=== PATIENT | female | born 1935 | race Caucasian/White ===

== ENCOUNTER 2018-08-29 18:22 | Emergency (ER) | payer SELFPAY ==
[2018-08-29] MEDS ORDERED: Acetaminophen 500 MG TAB ONE (19:25)
--- NOTE | 2018-08-29 20:03 | RAD ---
EXAM: LUMBAR SPINE THREE VIEWS: 08/29/18 HISTORY: Low back pain increasing over several days. Moderate vertical height loss of L3 is noted but this has an old appearance. Heterogeneous bone demin eralization. Prominent atherosclerotic calcification. Generalized spondylosis. IMPRESSION: Bone demineralization. Spondylosis. Vertical height loss of L3 vertebral body which has more of an ol d appearance. Moderate fecal material including a dilated rectum. Evidence for obstipation. POS: [facility]
[2018-08-29] MEDS ORDERED: Cyclobenzaprine 10 MG TAB ONE (20:13)
--- NOTE | 2018-08-29 20:19 | ULT ---
RIGHT LOWER EXTREMITY VENOUS DUPLEX ULTRASOUND INCLUDING COLOR AND SPECTRAL DOPPLER IMAGIN08/29/18 HISTORY: Right ankle pain without known injury. Exam performed from groin to ankle including visualized greater saphenous, common femoral, superficia l femoral, profunda femoral, popliteal, trifurcation, and posterior tibial vein regions. Phasic flow noted at all levels with normal compressibility and normal augmentation. IMPRESSION: No evidence for deep venous thrombosis. POS: [facility]
[2018-08-29] MEDS ORDERED: HYDROcodone/Acetaminophen 5/325 mg Tablet ONE (22:01)
== END 2018-08-29 22:10 | disposition home or self-care (01) ==
LOC: ERS 18:22
DX: M54.5 Low back pain (principal); L03.115 Cellulitis of right lower limb; I48.91 Unspecified atrial fibrillation; E03.9 Hypothyroidism, unspecified; E78.5 Hyperlipidemia, unspecified; F41.9 Anxiety disorder, unspecified; F32.9 Major depressive disorder, single episode, unspecified; Z79.899 Other long term (current) drug therapy; Z79.01 Long term (current) use of anticoagulants
CPT/HCPCS: 72100

== ENCOUNTER 2018-08-30 22:26 | Emergency (ER) | payer MEDICARE, SELFPAY ==
[2018-08-30] MEDS ORDERED: Acetaminophen 500 MG TAB ONE (23:13)
[2018-08-30 23:42] LABS: #Basophils 0.1 thou/uL (0.0-0.2); #Eosinphils 0.2 thou/uL (0.0-0.7); #Neutrophils 6.9 thou/uL (1.40-6.50); %Basophils 0.7 % (0.0-1.0); %Eosinophils 1.8 % (0.0-10.0); %Lymphocytes 19.4 % (21.0-51.0); %Monocytes 9.6 % (0.0-10.0); %Neutrophils 68.6 % (42.0-75.0); Hemoglobin 13.8 g/dL (12.0-16.0); Mean Corpuscular HGB CONC 33.8 g/dL (32.0-36.0); Mean Corpuscular Volume 91.6 fL (78.0-98.0); Mean Platelet Volume 6.7 fL (7.4-10.4); Platelet Count 238 thou/uL (130-400); RBC Distribution Width 11.3 % (11.5-14.5); Red Blood Cell (RBC) Count 4.47 mill/uL (4.20-5.40)
[2018-08-30 23:57] LABS: Bilirubin Negative (Negative); Blood, Urine Negative (Negative); Clarity CLEAR (Clear); Glucose, Urine (Dipstick) Negative (Negative); Leukocyte Moderate (Negative); Nitrite Negative (Negative); Protein, Urine (Dipstick) Negative (Neg-Trace); Specific Gravity, Urine 1.014 (1.002-1.036)
[2018-08-30 23:59] LABS: Bacteria/HPF None Seen HPF (None Seen); Hyaline Casts/LPF 0-3 HYALINE CAST LPF (0-3 Hyaline); Pathc Cast-AUWi Flag 0.27 (0-2.49); RBC/HPF 0-3 HPF (0-3); Squamous Epithelial 0-3 HPF (0-3)
[2018-08-31 00:03] LABS: ALT (SGPT) 12 U/L (8-55); AST (SGOT) 17 U/L (5-34); Albumin 4.1 g/dL (3.4-4.8); Alkaline Phosphatase 67 U/L (40-150); Anion Gap 14 mmol/L (10-20); BUN (Urea Nitrogen) 16 mg/dL (9.8-20.1); Bilirubin, Total 1.4 mg/dL (0.2-1.2); Calc. Creatinine Clearance 0 mL/min (70-130); Calcium 9.5 mg/dL (7.8-10.44); Carbon Dioxide 26 mmol/L (23-31); Chloride 99 mmol/L (98-107); Estimated GFR-MDRD 56; Globulin 3.3 g/dL (2.4-3.5); Glucose 96 mg/dL (83-110); Potassium 3.6 mmol/L (3.5-5.1); Protein, Total 7.4 g/dL (6.0-8.3); Sodium 135 mmol/L (136-145)
== END 2018-08-31 01:26 | disposition home or self-care (01) ==
LOC: ERS 22:26
DX: M62.830 Muscle spasm of back (principal); F41.9 Anxiety disorder, unspecified; F32.9 Major depressive disorder, single episode, unspecified; I48.91 Unspecified atrial fibrillation; E03.9 Hypothyroidism, unspecified; E78.5 Hyperlipidemia, unspecified; Z79.899 Other long term (current) drug therapy
CPT/HCPCS: 36415; 80053; 81003; 81015; 85025; 99283

== ENCOUNTER 2018-09-10 15:01 | Observation (INO) | payer MEDICARE ==
[2018-09-10 16:42] LABS: #Lymphocytes 2.2 thou/uL (1.20-3.40); #Monocytes 1.1 thou/uL (0.11-0.59); #Neutrophils 11.1 thou/uL (1.40-6.50); %Basophils 0.2 % (0.0-1.0); %Eosinophils 0.2 % (0.0-10.0); %Lymphocytes 15.4 % (21.0-51.0); %Monocytes 7.5 % (0.0-10.0); %Neutrophils 76.8 % (42.0-75.0); Mean Corpuscular HGB CONC 32.9 g/dL (32.0-36.0); Mean Corpuscular Hemoglobin 30.7 pg (27.0-31.0); Mean Corpuscular Volume 93.4 fL (78.0-98.0); Mean Platelet Volume 5.9 fL (7.4-10.4); Platelet Count 348 thou/uL (130-400); RBC Distribution Width 11.8 % (11.5-14.5); Red Blood Cell (RBC) Count 4.23 mill/uL (4.20-5.40); White Blood Cell (WBC) Count 14.4 thou/uL (4.8-10.8)
[2018-09-10] MEDS ORDERED: Acetaminophen 325 MG TAB ONE (17:02)
[2018-09-10 17:04] LABS: ALT (SGPT) 17 U/L (8-55); AST (SGOT) 20 U/L (5-34); Albumin 3.7 g/dL (3.4-4.8); Alkaline Phosphatase 104 U/L (40-150); Anion Gap 11 mmol/L (10-20); BUN (Urea Nitrogen) 20 mg/dL (9.8-20.1); Bilirubin, Total 0.9 mg/dL (0.2-1.2); Calc. Creatinine Clearance 0 mL/min (70-130); Calcium 8.8 mg/dL (7.8-10.44); Carbon Dioxide 25 mmol/L (23-31); Chloride 101 mmol/L (98-107); Estimated GFR-MDRD 52; Globulin 2.8 g/dL (2.4-3.5); Glucose 93 mg/dL (83-110); Lipase 24 U/L (8-78); Potassium 3.8 mmol/L (3.5-5.1); Protein, Total 6.5 g/dL (6.0-8.3); Sodium 133 mmol/L (136-145)
[2018-09-10 17:16] LABS: Bilirubin Negative (Negative); Blood, Urine Large (Negative); Clarity CLOUDY (Clear); Glucose, Urine (Dipstick) Negative (Negative); Leukocyte Small (Negative); Nitrite Negative (Negative); Protein, Urine (Dipstick) Negative (Neg-Trace); Specific Gravity, Urine 1.009 (1.002-1.036)
[2018-09-10 17:19] LABS: Hyaline Casts/LPF 0-3 HYALINE CAST LPF (0-3 Hyaline); Squamous Epithelial 0-3 HPF (0-3); WBC/HPF 0-3 HPF (0-3)
[2018-09-10 17:21] LABS: Yeast-AUWi Flag 88.4 (0-25.0)
[2018-09-10 17:29] LABS: Bacteria/HPF Rare-Few HPF (None Seen); Crystals/HPF RARE AMORPH URATES HPF (Negative)
[2018-09-10] MEDS ORDERED: Lidocaine 2% PF 100 mg/5 ml Syringe ONE (17:49)
[2018-09-10] MEDS ORDERED: Lidocaine Viscous Sol 2% 15 ml UD Cup ONE (17:52)
--- NOTE | 2018-09-10 18:10 | CT ---
CT ABDOMEN AND PELVIS WITHOUT IV CONTRAST: INDICATIONS: Abdominal pain. TECHNIQUE: Multiple axial tomograms obtained through the abdomen and pelvis without IV enhancement. FINDINGS: The lung bases are clear. There is a small fixed diaphragmatic hernia. Atherosclerotic calcificatio n in the visualized aorta. Ectasia of the lower thoracic aorta as it passes through the diaphragm. Mild ectasia of the abdominal aorta without aneurysmal dilatation. The liver, spleen, and pancreas are unremarkable for an unenhanced study. Numerous clips in the lasha on of the gallbladder with evidence of a prior cholecystectomy. There are numerous small calcific de nsities seen in the proximal portal veins, which are of uncertain significance and etiology. There a re tiny granulomatous calcifications in the spleen. The adrenal glands appear normal. The kidneys are unremarkable. No hydronephrosis. Small bowel loops are of normal caliber. The appendix is not identified. There is stool throughout the colon. The rectum is dilated and filled with stool, suggesting a fecal impaction. The rectum measures up to 9 cm in diameter, and there is mild mural thickening, which suggests stercoral colitis, due to fecal impaction. The urinary bladder is unremarkable. IMPRESSION: 1. Stool-filled dilated rectum, suggesting fecal impaction. 2. Mild mucosal thickening, which also suggests changes of stercoral colitis. POS: [facility]
[2018-09-10] MEDS ORDERED: metroNIDAZOLE 500 MG/100 ML BAG ONE (18:18)
[2018-09-10 20:06] VITALS: BMI 19.9
[2018-09-10] MEDS ORDERED: hydrALAZINE 20 MG/ML VIAL SLOW IVP PRN (20:32)
[2018-09-10] MEDS ORDERED: Loperamide HCl 2 MG CAP PO PRN (20:43)
[2018-09-10] MEDS: Sodium Chloride 0.9% 1,000 ML IV SCH (21:02)
[2018-09-10] MEDS: Lisinopril 20 MG TAB PO SCH ×3 (21:05→22:46)
[2018-09-10] MEDS: Apixaban 2.5 MG TAB PO SCH ×3 (21:06→22:46)
[2018-09-10] MEDS: Amlodipine 5 MG TAB PO SCH ×3 (21:06→22:47)
[2018-09-10] MEDS ORDERED: Ondansetron PF 4 MG/2 ML Vial IVP PRN (21:16)
[2018-09-10] MEDS ORDERED: Ondansetron ODT 4 MG TAB PO PRN (21:16)
[2018-09-10] MEDS: Hyoscyamine Sulfate SL 0.125 mg Tablet SL SCH (23:49)
--- NOTE | 2018-09-11 01:07 | HP ---
PRIMARY CARE PHYSICIAN: Paul Pedraza MD CHIEF COMPLAINT: Diarrhea and left-sided abdominal pain. HISTORY OF PRESENT ILLNESS: Ms. Zurita is an 82-year-old female with past medical history of hypertension, hyperlipidemia, chronic kidney disease stage 2, chronic back pain, hypothyroidism, atrial fibrillation, who had presented to [facility] earlier today after she has been experiencing left-sided abdominal pain and several bouts of diarrhea that started yesterday morning. She states that she has about 10 to 12 bouts of diarrhea daily. She states that she has been taking Imodium at home, however, has seen no improvement. She states that she was started on antibiotics roughly 2 weeks ago for a foot infection, which she states had improved. However, since then, she states that the symptoms of left-sided abdominal pain and this diarrhea started. She had denied any fever, chills, any headache, blurred vision, dizziness, any chest pain, palpitations, shortness of breath, or any nausea, or vomiting. During her initial workup in the emergency department, her white count was slightly elevated at 14.4. She also underwent a CT abdomen and pelvis, which displayed mild mucosal thickening which would suggest changes of the Stercoral colitis and stool-filled dilated rectum suggesting of fecal impaction. However, the ED provider performed a digital rectal exam and found loose stool in the rectum and no further fecal impaction was suspected at that time. The patient states that her left-sided pain is worse with movement, but she states eating and drinking has not changed her pain. She was started on IV ciprofloxacin and IV Flagyl and she was started on IV normal saline for hydration. REVIEW OF SYSTEMS: All other systems reviewed and found to be negative unless mentioned in the HPI. PAST MEDICAL HISTORY: Hypertension, hyperlipidemia, hypothyroidism, chronic kidney disease stage 3, atrial fibrillation, currently controlled, and chronic back pain. PAST SURGICAL HISTORY: Hiatal hernia repair, appendectomy, cholecystectomy, hysterectomy, and oophorectomy. PSYCHIATRIC HISTORY: Includes anxiety and depression. SOCIAL HISTORY: The patient denies any alcohol, tobacco, or illicit drug use. KNOWN ALLERGIES: Codeine, fentanyl, iodine, penicillins, and sulfa. CURRENT HOME MEDICATIONS: 1. Apixaban 2.5 mg oral twice daily. 2. Docusate 100 mg p.o. daily. 3. Levothyroxine 75 mcg p.o. daily. 4. Amiodarone 100 mg oral daily. 5. Amlodipine 2.5 mg oral b.i.d. 6. Levsin 0.125 mg sublingual every 6 hours. 7. Lisinopril 20 mg oral b.i.d. 8. Metoprolol 50 mg oral daily. PHYSICAL EXAMINATION: VITAL SIGNS: BP 149/79, pulse 72, respirations 16, temperature 98.0 degrees Fahrenheit, and O2 saturations 96% on room air. GENERAL: The patient is awake, alert, and oriented x3. She is currently lying comfortably in bed and in no acute distress. HEENT: Atraumatic, normocephalic. Pupils are round and reactive to light. Extraocular muscles intact. Moist mucous membranes noted. CARDIOVASCULAR: Positive S1 and S2, regular rate and rhythm. No murmur auscultated. RESPIRATORY: Clear to auscultation bilaterally. No wheezes, rales, or rhonchi. ABDOMEN: Soft. Mild tenderness along the left lower quadrant of her abdomen. No rebound tenderness. No guarding. No rigidity. Bowel sounds present and hyperactive. MUSCULOSKELETAL: Strength 5+ in bilateral upper and lower extremities. Moves all extremities equal. Pedal and radial pulses 2+ bilaterally. No edema noted. NEUROLOGIC: Cranial nerves 2 through 12 grossly intact. No focal deficits noted. Speech intact and normal. Gait not assessed. SKIN: Warm, dry, and intact. No rashes. No ulceration noted. PSYCHIATRIC: Good mood and affect. LABORATORY DATA: WBC 14.4, RBC 4.23, hemoglobin 13.0, hematocrit 39.5, platelets 348. Sodium 133, potassium 3.8, anion gap 11, BUN 20, creatinine 1.02, estimated GFR 52, glucose 93, lactic acid 0.6, AST 20, ALT 17, alkaline phosphatase 104, lipase 24. Urinalysis shows small leukocyte esterase and large blood, otherwise unremarkable. DIAGNOSTIC IMAGING: CT abdomen and pelvis without contrast showed stool-filled dilated rectum suggestive of fecal impaction with mild mucosal thickening, which also suggest changes of Stercoral colitis. ASSESSMENT AND PLAN: 1. Colitis. The patient will be started on IV Cipro and Flagyl for now. She will also be started on gentle hydration with IV normal saline. She will be also managed with symptomatic management at this time. 2. Diarrhea, likely secondary to above, CT showed possible fecal impaction. However, the ED provider performed a digital rectal exam, which had failed to find any sort of fecal impaction. C diff was ruled out and other stool cultures pending at this time. 3. Leukocytosis. The patient will be continued on IV antibiotics for now and await further cultures. 4. Hypertension. Continue patient's home regimen. 5. Hypothyroidism. Continue patient's home dose of levothyroxine and recheck TSH in the morning. 6. History of atrial fibrillation, currently stable on Eliquis and amiodarone along with metoprolol, the patient will be monitored on telemetry and we will check daily EKG for any QT changes due to the use of Cipro. 7. Deep venous thrombosis and gastrointestinal prophylaxis. 8. Code status, full code. 9. Surrogate decision maker is patient's son, Sheng Zurita. DISPOSITION: Pending further workup and clinical findings. Job ID: [id number]
[2018-09-11] MEDS ORDERED: metroNIDAZOLE 500 MG in Premix Bag 1 BAG IVPB SCH (02:00)
[2018-09-11] MEDS: Acetaminophen 325 MG TAB PO PRN ×2 (03:43→20:38)
[2018-09-11 05:09] LABS: #Lymphocytes 1.6 thou/uL (1.20-3.40); #Monocytes 0.9 thou/uL (0.11-0.59); #Neutrophils 7.7 thou/uL (1.40-6.50); %Basophils 0.1 % (0.0-1.0); %Eosinophils 0.3 % (0.0-10.0); %Lymphocytes 15.8 % (21.0-51.0); %Monocytes 8.3 % (0.0-10.0); %Neutrophils 75.6 % (42.0-75.0); Hemoglobin 12.4 g/dL (12.0-16.0); Mean Corpuscular HGB CONC 33.2 g/dL (32.0-36.0); Mean Corpuscular Hemoglobin 30.8 pg (27.0-31.0); Mean Corpuscular Volume 92.8 fL (78.0-98.0); Mean Platelet Volume 6.1 fL (7.4-10.4); Platelet Count 336 thou/uL (130-400); RBC Distribution Width 11.7 % (11.5-14.5); Red Blood Cell (RBC) Count 4.02 mill/uL (4.20-5.40); White Blood Cell (WBC) Count 10.2 thou/uL (4.8-10.8)
[2018-09-11 05:17] LABS: Anion Gap 11 mmol/L (10-20); BUN (Urea Nitrogen) 15 mg/dL (9.8-20.1); Calc. Creatinine Clearance 50 mL/min (70-130); Calcium 8.5 mg/dL (7.8-10.44); Carbon Dioxide 22 mmol/L (23-31); Chloride 107 mmol/L (98-107); Estimated GFR-MDRD 73; Glucose 102 mg/dL (83-110); Potassium 4.1 mmol/L (3.5-5.1); Sodium 136 mmol/L (136-145)
[2018-09-11] MEDS: Sodium Chloride 0.9% 1,000 ML IV SCH (06:10)
[2018-09-11] MEDS: Levothyroxine Sodium 75 MCG TAB PO SCH (06:11)
[2018-09-11] MEDS: Hyoscyamine Sulfate SL 0.125 mg Tablet SL SCH ×4 (06:11→22:46)
[2018-09-11] MEDS: Apixaban 2.5 MG TAB PO SCH ×2 (08:46→20:54)
[2018-09-11] MEDS: Amlodipine 5 MG TAB PO SCH ×2 (08:47→20:36)
[2018-09-11] MEDS: Famotidine 20 MG TAB PO SCH ×2 (08:47→20:37)
[2018-09-11] MEDS: Amiodarone 200 MG TAB PO SCH (08:48)
[2018-09-11] MEDS: Lisinopril 20 MG TAB PO SCH ×2 (08:48→20:37)
[2018-09-11] MEDS: Docusate 100 MG CAP PO SCH (08:49)
[2018-09-11] MEDS ORDERED: Ciprofloxacin 500 MG TAB PO SCH (10:15)
[2018-09-11 11:16] LABS: Troponin I Less than 0.010 ng/mL (< 0.028)
[2018-09-11] MEDS: Lidocaine 5% Patch TD SCH (11:42)
--- NOTE | 2018-09-11 13:41 | PDOC.PN ---
- Subjective Encounter Start Date: 09/11/18 Encounter Start Time: 09:30 Subjective: Patient examined, c/o of chronic back pain with movement -: Did get up and walk up and down the halls today -: Reports diarrhea is much improved, denies abdominal pain - Objective Resuscitation Status - Order Detail: 09/10/18 21:16 Resuscitation Status Routine Co-Sign Provider: Resuscitation Status: FULL: Full Resuscitation Vital Signs & Weight: Vital Signs (12 hours) Temp Pulse Resp BP BP Pulse Ox 09/11/18 11:31 98.6 F 59 L 16 141/70 H 96 09/11/18 08:48 157/75 H 09/11/18 08:47 62 09/11/18 07:13 98.9 F 62 16 157/75 H 96 09/11/18 02:22 98.2 F 66 18 134/67 92 L Weight Weight 55.837 kg I&O: 09/10/18 09/11/18 09/12/18 06:59 06:59 06:59 Intake Total 1611 720 Output Total 300 Balance 1611 420 Result Diagrams: 09/11/18 04:25 09/11/18 04:25 Phys Exam - Physical Examination HEENT: PERRLA, moist MMs Neck: no nodes Respiratory: clear to auscultation bilateral Cardiovascular: RRR Gastrointestinal: soft, non-tender, positive bowel sounds Musculoskeletal: no edema, pulses present Neurological: non-focal, normal sensation Lymphatic: no nodes Psychiatric: normal affect, A&O x 3 Skin: cap refill <2 seconds Dx/Plan (1) Colitis Code(s): K52.9 - NONINFECTIVE GASTROENTERITIS AND COLITIS, UNSPECIFIED Status : Acute (2) Lumbar back pain Code(s): M54.5 - LOW BACK PAIN Status: Chronic (3) Atrial fibrillation Code(s): I48.91 - UNSPECIFIED ATRIAL FIBRILLATION Status: Chronic (4) Chronic kidney disease (CKD) Code(s): N18.9 - CHRONIC KIDNEY DISEASE, UNSPECIFIED Status: Chronic (5) Diarrhea Code(s): R19.7 - DIARRHEA, UNSPECIFIED Status: Resolved - Plan continue antibiotics Switched ABX to oral, ordered Lidocaine 5% patch for lumbar pain -: May DC ABX with cdiff negative and UA culture low for bacteria -: Will most likely DC home in AM if she continues to improve -: Diet as tolerated * .
[2018-09-11] MEDS: metroNIDAZOLE 500 MG TAB PO SCH ×2 (15:12→20:36)
[2018-09-11] MEDS: Ciprofloxacin 500 MG TAB PO SCH (20:36)
[2018-09-11] MEDS ORDERED: Lidocaine Patch Removal 1 EACH TOP SCH (23:30)
[2018-09-12] MEDS: Acetaminophen 325 MG TAB PO PRN ×3 (03:29→14:26)
[2018-09-12 05:24] LABS: #Basophils 0.1 thou/uL (0.0-0.2); #Eosinphils 0.1 thou/uL (0.0-0.7); #Lymphocytes 1.5 thou/uL (1.20-3.40); #Monocytes 0.8 thou/uL (0.11-0.59); #Neutrophils 7.7 thou/uL (1.40-6.50); %Basophils 0.6 % (0.0-1.0); %Eosinophils 0.6 % (0.0-10.0); %Monocytes 8.1 % (0.0-10.0); %Neutrophils 75.7 % (42.0-75.0); Hemoglobin 12.3 g/dL (12.0-16.0); Mean Corpuscular HGB CONC 32.3 g/dL (32.0-36.0); Mean Corpuscular Hemoglobin 30.5 pg (27.0-31.0); Mean Corpuscular Volume 94.2 fL (78.0-98.0); Mean Platelet Volume 5.8 fL (7.4-10.4); Platelet Count 306 thou/uL (130-400); RBC Distribution Width 11.8 % (11.5-14.5); Red Blood Cell (RBC) Count 4.02 mill/uL (4.20-5.40); White Blood Cell (WBC) Count 10.2 thou/uL (4.8-10.8)
[2018-09-12 05:46] LABS: Anion Gap 12 mmol/L (10-20); BUN (Urea Nitrogen) 13 mg/dL (9.8-20.1); Calc. Creatinine Clearance 55 mL/min (70-130); Calcium 8.6 mg/dL (7.8-10.44); Carbon Dioxide 21 mmol/L (23-31); Chloride 103 mmol/L (98-107); Estimated GFR-MDRD 80; Glucose 98 mg/dL (83-110); Sodium 132 mmol/L (136-145)
[2018-09-12] MEDS: Hyoscyamine Sulfate SL 0.125 mg Tablet SL SCH ×2 (06:09→12:49)
[2018-09-12] MEDS: Levothyroxine Sodium 75 MCG TAB PO SCH (06:09)
[2018-09-12] MEDS: Ciprofloxacin 500 MG TAB PO SCH (06:09)
[2018-09-12] MEDS: Docusate 100 MG CAP PO SCH (09:17)
[2018-09-12] MEDS: Amiodarone 200 MG TAB PO SCH (09:18)
[2018-09-12] MEDS: Apixaban 2.5 MG TAB PO SCH (09:18)
[2018-09-12] MEDS: Famotidine 20 MG TAB PO SCH (09:18)
[2018-09-12] MEDS: Amlodipine 5 MG TAB PO SCH (09:19)
[2018-09-12] MEDS: metroNIDAZOLE 500 MG TAB PO SCH ×2 (09:19→14:26)
[2018-09-12] MEDS: Lisinopril 20 MG TAB PO SCH (09:19)
[2018-09-12 12:27] VITALS: BP 153/73; TEMP 98.6
[2018-09-12] MEDS: Lidocaine 5% Patch TD SCH (12:30)
--- NOTE | 2018-09-12 23:34 | DIS ---
DATE OF ADMISSION: 09/10/2018 DATE OF DISCHARGE: 09/12/2018 PRIMARY CARE PHYSICIAN: Paul Pedraza MD CONSULTANTS: None. PROCEDURES: Abdomen and pelvis CT, findings; 1. Stool filled dilated rectum suggesting fecal impaction. 2. Mild mucosal thickening suggest changes of stercoral colitis. HOSPITAL COURSE: Ms. Zurita is an 82-year-old female with past medical history of hypertension, hyperlipidemia, chronic kidney disease stage 2, chronic back pain, hypothyroidism, atrial fib, who had presented to this [facility] ER after experiencing left-sided abdominal pain and 10 to 12 bouts of diarrhea. She reports that she had begun taking Imodium at home; however, she had not seen any improvement. She reported recent antibiotic use due to cellulitis. Reports that when the diarrhea did not stop with the Imodium, she came to the emergency room. Initial workup in the emergency room showed stercoral colitis and initial suggestion of fecal impaction, although the ED physician did try to do a disimpaction and did not find any stool in the rectal vault. She was initially started on IV Cipro and Flagyl and IV hydration. Stool was sent off for C diff, which was ruled out. The patient was changed over to p.o. Cipro and Flagyl and has tolerated. Reports that she no longer has any abdominal pain and diarrhea has stopped while being admitted. She denied chills, fever, any dizziness with these symptoms. Reports chronic back pain, which is currently her only symptom which is mildly improved after we applied lidocaine topical patch. The patient continued to improve, so she was sent home. We will continue the Flagyl and Cipro for 4 days and ask her to follow up with Dr. Pedraza within the next week. If the patient has not had a colonoscopy in the next 5 years, we recommend based on symptoms in the emergency room that she be sent for an evaluation. ALLERGIES: CODEINE, FENTANYL, IODINE, PENICILLIN, AND SULFA. MEDICATIONS: Home medications were restarted; 1. Amiodarone 100 mg p.o. daily. 2. Norvasc 2.5 mg p.o. b.i.d. 3. Eliquis 2.5 mg p.o. b.i.d. 4. Docusate 100 mg p.o. daily. 5. Levsin SL one tablet SL q.6 hours. 6. Levothyroxine p.o. daily. 7. Lisinopril 20 mg p.o. b.i.d. 8. Metoprolol 50 mg p.o. daily. 9. We added 4 days of 500 mg of Cipro t.i.d. x4 days, also Flagyl 500 mg p.o. t.i.d. x4 days, and Lidoderm 5% patch apply q.24 on for 12, off for 12, and then she can reapply. DISPOSITION: Home. DISPOSITION CONDITION: Stable. DISCHARGE INSTRUCTIONS: Follow up with Dr. Pedraza within the next week. Continue antibiotics for the next 4 days. Lidoderm 5% patch as needed p.r.n., instructed to she can apply q.24 hours, wear for 12, take off for 12. Follow up with her PCP if this helps to see if he will prescribe on an ongoing basis. Follow up with GI if she has not had a colonoscopy recently. Case discussed with Dr. Hogan who agrees with plan. Job ID: [id number]
--- NOTE | 2018-09-16 10:29 | EKG ---
Test Reason : BASELINE REFERENCE Blood Pressure : / mmHG Vent. Rate : 061 BPM Atrial Rate : 061 BPM P-R Int : 168 ms QRS Dur : 092 ms QT Int : 448 ms P-R-T Axes : 011 -03 070 degrees QTc Int : 450 ms Normal sinus rhythm Nonspecific ST and T wave abnormality Abnormal ECG Confirmed by LISANDRO LYON M.D. ([id number]), manuscript editor SUZY RODRIGUEZ ([id number]) on 09/16/2018 10:29:19 AM Referred By: ERMAdalberto Confirmed By:LISANDRO LYON M.D.
== END 2018-09-12 14:44 | disposition home or self-care (01) ==
LOC: ERS 15:01 → 2SW 19:39
PROVIDERS: ADMIT Family Medicine; ATTEND Family Medicine
DX: K52.89 Other specified noninfective gastroenteritis and colitis (principal); I12.9 Hypertensive chronic kidney disease with stage 1 through stage 4 chronic kidney disease, or unspecified chronic kidney disease; N18.3 Chronic kidney disease, stage 3 (moderate); E78.5 Hyperlipidemia, unspecified; G89.29 Other chronic pain; M54.9 Dorsalgia, unspecified; E03.9 Hypothyroidism, unspecified; I48.91 Unspecified atrial fibrillation; F41.9 Anxiety disorder, unspecified; F32.9 Major depressive disorder, single episode, unspecified; D72.829 Elevated white blood cell count, unspecified; Z79.01 Long term (current) use of anticoagulants; Z79.899 Other long term (current) drug therapy; Z88.0 Allergy status to penicillin; Z88.2 Allergy status to sulfonamides; Z88.5 Allergy status to narcotic agent; Z91.013 Allergy to seafood; Z91.018 Allergy to other foods; Z91.041 Radiographic dye allergy status
CPT/HCPCS: 74176; 80048 ×2; 80053; 83605; 83690; 84443; 84484; 85025 ×3; 87086; 87324; 87449; 93005 ×3; 96361 ×2; 96366; 96367; 97139 ×2; G0378 ×2; 36415; 81003; 81015; 93010; 96365; J0744; J2001

== ENCOUNTER 2018-09-16 18:12 | Inpatient (IN) | payer MEDICARE ==
[2018-09-16] MEDS ORDERED: Cyclobenzaprine 10 MG TAB ONE (19:07)
[2018-09-16 19:35] LABS: #Lymphocytes 1.7 thou/uL (1.20-3.40); #Monocytes 1.6 thou/uL (0.11-0.59); #Neutrophils 12.6 thou/uL (1.40-6.50); %Basophils 0.2 % (0.0-1.0); %Eosinophils 0.3 % (0.0-10.0); %Lymphocytes 10.4 % (21.0-51.0); %Monocytes 10.1 % (0.0-10.0); %Neutrophils 79.1 % (42.0-75.0); Hemoglobin 13.9 g/dL (12.0-16.0); Mean Corpuscular HGB CONC 33.5 g/dL (32.0-36.0); Mean Corpuscular Hemoglobin 30.9 pg (27.0-31.0); Mean Corpuscular Volume 92.3 fL (78.0-98.0); Mean Platelet Volume 5.7 fL (7.4-10.4); Platelet Count 324 thou/uL (130-400); RBC Distribution Width 12.1 % (11.5-14.5); Red Blood Cell (RBC) Count 4.49 mill/uL (4.20-5.40); White Blood Cell (WBC) Count 15.9 thou/uL (4.8-10.8)
[2018-09-16 19:56] LABS: Anion Gap 13 mmol/L (10-20); BUN (Urea Nitrogen) 14 mg/dL (9.8-20.1); Calc. Creatinine Clearance 0 mL/min (70-130); Calcium 9.1 mg/dL (7.8-10.44); Carbon Dioxide 20 mmol/L (23-31); Chloride 98 mmol/L (98-107); Estimated GFR-MDRD 73; Glucose 95 mg/dL (83-110); Potassium 3.7 mmol/L (3.5-5.1); Sodium 127 mmol/L (136-145)
[2018-09-16 20:19] LABS: Bilirubin Small (Negative); Blood, Urine Negative (Negative); Clarity CLEAR (Clear); Glucose, Urine (Dipstick) Negative (Negative); Leukocyte Trace (Negative); Nitrite Negative (Negative); Protein, Urine (Dipstick) Negative (Neg-Trace); Specific Gravity, Urine 1.024 (1.002-1.036)
[2018-09-16 20:21] LABS: Bacteria/HPF None Seen HPF (None Seen); Hyaline Casts/LPF 0-3 HYALINE CAST LPF (0-3 Hyaline); Pathc Cast-AUWi Flag 0.13 (0-2.49); RBC/HPF 0-3 HPF (0-3); Squamous Epithelial 0-3 HPF (0-3); WBC/HPF None Seen HPF (0-3)
[2018-09-16] MEDS ORDERED: SODIUM CHLORIDE 0.9% IVPB SCH (21:45)
[2018-09-16] MEDS ORDERED: METHOCARBAMOL IVPB SCH (21:45)
[2018-09-16] MEDS ORDERED: Methocarbamol 1 GM in Sodium Chloride 0.9% 100 ML IVPB SCH (22:00)
--- NOTE | 2018-09-16 22:55 | RAD ---
XR Chest 1 View Portable History: Back pain Comparison: None. Findings: Heart size is enlarged. Mild tortuosity of the aorta. Lungs without confluent airspace cons olidation, pneumothorax, or effusion. Impression: Chronic findings. No acute intrathoracic abnormality.
[2018-09-17] MEDS ORDERED: Ondansetron PF 4 MG/2 ML Vial IVP PRN (00:16)
[2018-09-17] MEDS ORDERED: Ondansetron ODT 4 MG TAB SL PRN (00:16)
[2018-09-17] MEDS: Sodium Chloride 0.9% 1,000 ML IV SCH ×2 (00:23→08:15)
[2018-09-17] MEDS: Acetaminophen 325 MG TAB PO PRN ×3 (00:24→18:22)
[2018-09-17 09:53] LABS: #Eosinphils 0.1 thou/uL (0.0-0.7); #Lymphocytes 1.7 thou/uL (1.20-3.40); #Monocytes 1.1 thou/uL (0.11-0.59); #Neutrophils 9.8 thou/uL (1.40-6.50); %Basophils 0.1 % (0.0-1.0); %Eosinophils 0.7 % (0.0-10.0); %Lymphocytes 13.5 % (21.0-51.0); %Monocytes 8.6 % (0.0-10.0); %Neutrophils 77.1 % (42.0-75.0); Hemoglobin 14.2 g/dL (12.0-16.0); Mean Corpuscular HGB CONC 33.5 g/dL (32.0-36.0); Mean Corpuscular Hemoglobin 31.2 pg (27.0-31.0); Mean Corpuscular Volume 93.2 fL (78.0-98.0); Mean Platelet Volume 5.6 fL (7.4-10.4); Platelet Count 347 thou/uL (130-400); RBC Distribution Width 12.3 % (11.5-14.5); Red Blood Cell (RBC) Count 4.56 mill/uL (4.20-5.40); White Blood Cell (WBC) Count 12.7 thou/uL (4.8-10.8)
[2018-09-17 10:12] LABS: Anion Gap 14 mmol/L (10-20); BUN (Urea Nitrogen) 8 mg/dL (9.8-20.1); Calc. Creatinine Clearance 52 mL/min (70-130); Calcium 9.1 mg/dL (7.8-10.44); Carbon Dioxide 20 mmol/L (23-31); Chloride 102 mmol/L (98-107); Estimated GFR-MDRD 77; Glucose 120 mg/dL (83-110); Potassium 3.4 mmol/L (3.5-5.1); Sodium 133 mmol/L (136-145)
[2018-09-17 13:22] VITALS: BMI 19.6
--- NOTE | 2018-09-17 13:35 | CT ---
EXAM: CT Abdomen Pelvis WO Con PROVIDED CLINICAL HISTORY: Constipation and back pain. Generalized abdominal pain. COMPARISON: 09/10/2018 FINDINGS: There is linear bibasilar scarring and atelectasis. Calcified granulomata are again seen at the left lung base and in the spleen. There is herniation of fat at the posterior right lung base with tiny right pleural effusion. Postsurgical changes related to cholecystectomy are noted. Multiple small calcifications are seen windy ng the course of the portal veins bilaterally which is similar to prior exam. Exact significance is uncertain. The pancreas, bilateral adrenal glands, kidneys, and urinary bladder demonstrate a grossly normal non enhanced CT appearance. There is evidence of prior hysterectomy. Dense vascular calcifications are again seen in the coronary arteries as well as involving the abdomi nal aorta, iliac arteries, and mesenteric vessels. A small hiatal hernia is again present. There is question of mild thickening of the mcdaniels the stomach , but this is likely related to incomplete distention. Loops of small bowel are normal in caliber. There has been interval increase in the amount of retained fecal material seen throughout the colon w ith a moderate amount of retained fecal material now present throughout the colon. Perirectal inflammatory stranding as well as mild colonic wall thickening has resolved. The distal ileum appears mildly prominent in size with mild wall thickening which is nonspecific. This was not appreciated on the prior exam. There is a stable compression fracture involving the L1 and L3 vertebral bodies with degree of height loss unchanged from recent study on 09/10/2018. Transitional vertebra is present at the lumbosacral junction. There is osteopenia. Degenerative changes are noted in the spine. IMPRESSION: 1. Moderate amount of retained fecal material seen throughout the colon which has increased when comp ared to the prior exam compatible with constipation. The rectum remains dilated, but this has improved as well as improvement in rectal wall thickening and perirectal inflammatory changes. There is mild dilatation and mild thickening involving the distal ileum. This could be related to peristalsis in this region. However, infectious or inflammatory process involving the distal ileum is not excluded. 2. Hiatal hernia. 3. Postcholecystectomy changes as well as hysterectomy. 4. Tiny right pleural effusion with bibasilar scarring and/or atelectasis. 5. Stable compression fractures L1 and L3 vertebral bodies of indeterminate age.
[2018-09-17] MEDS: Hyoscyamine Sulfate SL 0.125 mg Tablet SL SCH ×3 (14:36→23:47)
[2018-09-17] MEDS: GoLYTELY 4,000 ml Bottle PO SCH (17:35)
[2018-09-17] MEDS ORDERED: Sodium Chloride 0.9% 1,000 ML IV SCH (19:15)
[2018-09-17] MEDS: Lisinopril 20 MG TAB PO SCH (22:03)
[2018-09-17] MEDS: Famotidine 20 MG TAB PO SCH (22:03)
[2018-09-17] MEDS: Apixaban 2.5 MG TAB PO SCH (22:03)
[2018-09-17] MEDS: Amlodipine 5 MG TAB PO SCH (22:04)
[2018-09-17] MEDS: Polyethylene Glycol 3350 17 GM Packet PO SCH (22:05)
[2018-09-17] MEDS: Senokot S 8.6-50 MG TAB PO SCH (22:05)
--- NOTE | 2018-09-17 22:16 | HP ---
PRIMARY CARE PHYSICIAN: Listed as Paul Pedraza MD. The patient does report she sees a physician in [place]. CHIEF COMPLAINT: Back pain. HISTORY OF PRESENT ILLNESS: Ms. Zurtia is an 83-year-old female who reports to the emergency room for low back pain that she has had x1 month, reports a history of chronic back pain and was seen here earlier for similar back pain. She was admitted several days, 08/31/2017 and was sent home on 09/12. She had some colitis followed by which she was admitted for diarrhea and experiencing left-sided abdominal pain and had 10 to 12 bouts of diarrhea. She was started on Cipro and Flagyl and IV hydration. Stool was sent off for C diff and that was ruled out. She denied any more abdominal pain and diarrhea and reports that stopped while she was admitted. She did report chronic back pain at that time, but it was paraspinal and she does have a history of compression fractures. She was discharged on 09/12 and instructed to follow up and finish a course of Cipro and Flagyl, which we started in the hospital, and she reports that she has finished these. She denies any current abdominal pain. Denies any diarrhea. Does report that she has not had a bowel movement since she was discharged. The patient reports that pain is exacerbated by movement, but when she is lying in bed, she reports the pain subsides. She denies any nausea, diarrhea, or vomiting. She denies fall. She denies any recent injury or trauma and denies that the pain has changed. She was given some lidocaine patches on discharge, which she said did not really help. She was also given Robaxin in the emergency room, which she states does not really help either. She was subsequently admitted to the observation unit for further management. REVIEW OF SYSTEMS: All systems reviewed and found negative unless mentioned in the HPI. PAST MEDICAL HISTORY: Includes hypertension; hyperlipidemia; hypothyroidism; chronic kidney disease, stage 3; atrial fibrillation, currently controlled; and chronic back pain. PAST SURGICAL HISTORY: Hiatal hernia repair, appendectomy, cholecystectomy, hysterectomy, and oophorectomy. PSYCHIATRIC HISTORY: Includes anxiety and depression. SOCIAL HISTORY: She lives with her family. Denies any alcohol, tobacco, or illicit drug use. KNOWN ALLERGIES: Codeine, fentanyl, iodine, penicillins, and sulfa. CURRENT HOME MEDICATIONS: 1. Tylenol 1000 mg p.o. q.6 hours as needed. 2. Cordarone 100 mg p.o. daily. 3. Norvasc 2.5 mg p.o. b.i.d. 4. Eliquis 2.5 mg . 5. Vitamin D p.o. daily. 6. Docusate 100 mg p.o. daily. 7. Flaxseed 1000 mg p.o. daily. 8. Levsin SL 0.125 mg q.6 hours as needed. 9. Synthroid 75 mcg p.o. daily. 10. Lisinopril 20 mg p.o. b.i.d. 11. Lopressor 50 mg p.o. daily. PHYSICAL EXAMINATION: VITAL SIGNS: Blood pressure 136/74, pulse is 65, respirations 18, temperature is 98, pO2 sats are 96% on room air. CONSTITUTIONAL: The patient appears nontoxic, is alert and oriented to person, place, and time, and is in no distress. HEENT: Head is atraumatic and normocephalic. Eyes; eyelids are normal to inspection. Pupils are equally round and reactive to light. ENT; mouth exam is normal. Mucous membranes are moist. NECK: Normal range of motion. Trachea is midline. RESPIRATORY/CHEST: Breath sounds are clear. No signs of respiratory distress. CARDIOVASCULAR: Regular heart rate and rhythm. Heart sounds are normal. ABDOMEN: Bowel sounds are normal. Nontender. No distention. No guarding. No peritoneal signs. BACK: There is some mild tenderness, left sacral, left paraspinal. No midline tenderness. Normal thigh adduction. Normal knee extension. Normal ankle dorsiflexion. Normal knee reflexes. Normal plantar flexion. Normal groin sensation. EXTREMITIES: Upper extremity; normal range of motion. Normal sensation. Radial pulses are normal. Lower extremities; motor strength is normal. Sensation is intact. Normal range of motion. Pedal pulses are normal. NEUROLOGIC: Oriented to person, place, and time. Speech is normal. No focal motor or sensory deficits. She has no bowel or urinary incontinence. SKIN: Warm, dry, and normal in color. PSYCH: Has a normal affect. LABORATORY DATA: Initial white blood cell count was 15.9. Sodium was 127, potassium 3.7, chloride 98, carbon dioxide is 20, but BUN is 14, creatinine is 0.76, glucose is 95, calcium is 9.1. PLAN AND ASSESSMENT: 1. Low back pain, paraspinal in nature. Does have compression fractures noted on CT scan at L1, L3. Pain that she is experiencing are not over this particular area. 2. Constipation. We will order MiraLAX b.i.d. GoLYTELY to be drugged slowly over the next 24 hours. 3. The patient had an abdomen and pelvis CT, which showed some mild dilatation and mild thickening involving the distal ileum. Infectious or inflammatory process involving the distal ileum is not excluded. The patient has just finished a 7-day course of Cipro and Flagyl. We will try some relief for the constipation and this will have to be re-evaluated. 4. Hypertension. Home medications will be restarted. 5. Hypothyroidism. Home medication will be restarted. 6. History of atrial fibrillation, chronic anticoagulation use. The patient has a history of atrial fibrillation and we will restart the Eliquis, home medication. 7. Gastrointestinal prophylaxis has been started. 8. Case discussed with Dr. Lopez who agrees with plan. 9. Hospital course will be dependent on clinical findings. Job ID: [id number]
[2018-09-18] MEDS: Acetaminophen 325 MG TAB PO PRN ×4 (00:27→19:13)
--- NOTE | 2018-09-18 00:53 | CON ---
DATE OF CONSULTATION: CONSULTING PHYSICIAN: Matthew Phillips MD REASON FOR CONSULTATION: Hyponatremia. IMPRESSION: Hyponatremia. This is likely to be due to poor p.o. osmolar intake. However, I cannot completely rule out a component of syndrome of inappropriate antidiuretic hormone, especially in this patient with . PLAN: 1. Urine chemistry, sodium, and osmolality to be able to identify what type of hyponatremia. 2. The patient to step for increase p.o. intake in the way of animal meat. 3. Further management will be dependent on the clinical course and results of the urine chemistry. HISTORY OF PRESENT ILLNESS: This is an 83-year-old female patient who presented with back pain which has been going on for about a month. The patient does have history of chronic back pain. The patient recently treated for colitis for which she was discharged on Cipro, Flagyl. The patient has had some diarrhea. The patient also has poor appetite. According to her, whatever that is presented before she will lose appetite to eat. On presentation, the patient noted with a low sodium, thus the for need for renal consult. PAST MEDICAL HISTORY: Significant for hypertension, dyslipidemia, hypothyroidism, chronic kidney disease, stage 3, atrial fibrillation. MEDICATIONS: Reviewed and as documented on [employer]. FAMILY HISTORY: Not significantly related to present illness. SOCIAL HISTORY: Denies alcohol, tobacco, or illicit drug use. REVIEW OF SYSTEMS: As documented in the body of the history. PHYSICAL EXAMINATION: GENERAL: The patient was found not to be in any obvious distress with dry oral mucosa. NECK: Supple. EYES: No conjunctival injection or icterus. CARDIOVASCULAR: First and second heart sounds were heard. RESPIRATORY: Clear to auscultation. DIGESTIVE: Revealed a benign abdomen with positive bowel sounds. EXTREMITIES: No peripheral edema. SKIN: No new gross rash. LYMPHATICS: No peripheral lymphadenopathy. In summary, an 83-year-old female patient who presented with worsening chronic back pain, noted incidentally with hyponatremia, thus the need for renal consultation. Job ID: [id number]
[2018-09-18] MEDS: Hyoscyamine Sulfate SL 0.125 mg Tablet SL SCH ×4 (05:09→19:13)
[2018-09-18] MEDS: Levothyroxine 150 MCG TAB PO SCH (05:09)
[2018-09-18 05:20] LABS: #Eosinphils 0.1 thou/uL (0.0-0.7); #Neutrophils 7.8 thou/uL (1.40-6.50); %Basophils 0.2 % (0.0-1.0); %Lymphocytes 18.5 % (21.0-51.0); %Neutrophils 71.3 % (42.0-75.0); Hemoglobin 13.2 g/dL (12.0-16.0); Mean Corpuscular HGB CONC 33.3 g/dL (32.0-36.0); Mean Corpuscular Hemoglobin 31.3 pg (27.0-31.0); Mean Platelet Volume 5.6 fL (7.4-10.4); Platelet Count 322 thou/uL (130-400); RBC Distribution Width 12.3 % (11.5-14.5); Red Blood Cell (RBC) Count 4.22 mill/uL (4.20-5.40)
[2018-09-18 05:39] LABS: Anion Gap 12 mmol/L (10-20); BUN (Urea Nitrogen) 7 mg/dL (9.8-20.1); Calc. Creatinine Clearance 58 mL/min (70-130); Calcium 9.1 mg/dL (7.8-10.44); Carbon Dioxide 22 mmol/L (23-31); Chloride 103 mmol/L (98-107); Estimated GFR-MDRD 89; Glucose 94 mg/dL (83-110); Potassium 3.5 mmol/L (3.5-5.1); Sodium 133 mmol/L (136-145)
[2018-09-18] MEDS: Apixaban 2.5 MG TAB PO SCH ×2 (07:50→21:09)
[2018-09-18] MEDS: Senokot S 8.6-50 MG TAB PO SCH ×2 (07:50→21:13)
[2018-09-18] MEDS: Pot Chloride/Pot Bicarb/Cit Ac 25 mEq Effervescent Tablet PO SCH (07:50)
[2018-09-18] MEDS: Amlodipine 5 MG TAB PO SCH ×2 (07:51→21:10)
[2018-09-18] MEDS: Famotidine 20 MG TAB PO SCH ×2 (07:52→21:10)
[2018-09-18] MEDS: Amiodarone 200 MG TAB PO SCH (07:52)
[2018-09-18] MEDS: Lisinopril 20 MG TAB PO SCH ×2 (07:53→21:09)
[2018-09-18] MEDS: Polyethylene Glycol 3350 17 GM Packet PO SCH ×2 (07:53→21:13)
--- NOTE | 2018-09-18 14:31 | PDOC.PN ---
- Subjective Encounter Start Date: 09/18/18 Encounter Start Time: 14:27 Patient lying in bed, she reports feeling somewhat better today. She denies chest pain, shortness of breath, but reports some generalized weakness and some mild abdominal pain. 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 She continues on bowel regimen with some mild streaks of BM. - Objective Resuscitation Status - Order Detail: 09/17/18 10:33 Resuscitation Status Routine Co-Sign Provider: Resuscitation Status: FULL: Full Resuscitation Discussed with: patient Additional comments: Surrogate decision maker is Sheng Zurita, anca BRAR Reviewed: Yes Vital Signs & Weight: Vital Signs (12 hours) Temp Pulse Resp BP Pulse Ox 09/18/18 11:09 97.9 F 68 20 142/83 H 96 09/18/18 08:00 98.0 F 65 12 138/75 94 L 09/18/18 04:00 97.8 F 63 20 150/72 H 96 Weight Admit Weight 119 lb Weight 121 lb 8 oz I&O: 09/17/18 09/18/18 09/19/18 06:59 06:59 06:59 Intake Total 870 2580 Output Total 450 600 Balance 420 1980 Result Diagrams: 09/18/18 05:08 09/18/18 05:08 Radiology Reviewed by me: Yes Phys Exam - Physical Examination Constitutional: NAD HEENT: moist MMs, oral pharynx no lesions Neck: no nodes, supple Respiratory: no wheezing, no rales Cardiovascular: RRR, no significant murmur Gastrointestinal: soft, positive bowel sounds Mild diffuse tenderness to palpation Musculoskeletal: no edema, pulses present Neurological: non-focal, moves all 4 limbs Lymphatic: no nodes Psychiatric: A&O x 3 Skin: cap refill <2 seconds Dx/Plan (1) Constipation Code(s): K59.00 - CONSTIPATION, UNSPECIFIED Status: Acute (2) Hypothyroid Code(s): E03.9 - HYPOTHYROIDISM, UNSPECIFIED Status: Acute (3) Generalized weakness Code(s): R53.1 - WEAKNESS Status: Acute (4) Atrial fibrillation Code(s): I48.91 - UNSPECIFIED ATRIAL FIBRILLATION Status: Chronic (5) Chronic kidney disease (CKD) Code(s): N18.9 - CHRONIC KIDNEY DISEASE, UNSPECIFIED Status: Chronic (6) Lumbar back pain Code(s): M54.5 - LOW BACK PAIN Status: Chronic - Plan cont current plan of care, PT/OT * PT/OT * Consult rehab screen per PT recommendations * Continue bowel regimen * Continue home medications * If no relief or BM in next 24 hours will consider consult to GI
--- NOTE | 2018-09-18 18:22 | PRG ---
DATE OF SERVICE: 09/18/2018 SUBJECTIVE: The patient is seen and examined. Noted with the following vital signs. OBJECTIVE: VITAL SIGNS: Afebrile, temperature 98.1, pulse 60, respiratory rate of 18, O2 saturations 95%, and blood pressure 134/76. HEENT: Unremarkable. CARDIOVASCULAR SYSTEM: First and second heart sounds were heard. RESPIRATORY SYSTEM: Clear to auscultation. DIGESTIVE SYSTEM: Revealed a benign abdomen. Positive bowel sounds. EXTREMITIES: No peripheral edema. SKIN: No new gross rash. LYMPHATICS: No peripheral lymphadenopathy. LABORATORY INVESTIGATION: Showed a sodium that has plateaued around 133. 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 IMPRESSION: Chronic hyponatremia in the context of mild syndrome of inappropriate antidiuretic hormone. PLAN: 1. Discontinue IV fluid. 2. Increase protein intake in the way of animal meat. 3. Further management to be dependent on the clinical course. Job ID: [id number]
[2018-09-18] MEDS: GoLYTELY 4,000 ml Bottle PO SCH (23:16)
[2018-09-19] MEDS: Methocarbamol 500 MG TAB PO PRN ×3 (01:17→18:25)
[2018-09-19] MEDS: Hyoscyamine Sulfate SL 0.125 mg Tablet SL SCH ×5 (01:17→23:18)
[2018-09-19] MEDS: Acetaminophen 325 MG TAB PO PRN ×4 (02:31→23:24)
[2018-09-19] MEDS: Levothyroxine 150 MCG TAB PO SCH (05:59)
[2018-09-19] MEDS: Amiodarone 200 MG TAB PO SCH (08:03)
[2018-09-19] MEDS: Lisinopril 20 MG TAB PO SCH ×2 (08:03→20:44)
[2018-09-19] MEDS: Senokot S 8.6-50 MG TAB PO SCH ×2 (08:04→20:46)
[2018-09-19] MEDS: Polyethylene Glycol 3350 17 GM Packet PO SCH ×2 (08:04→20:45)
[2018-09-19] MEDS: Amlodipine 5 MG TAB PO SCH ×2 (08:04→20:44)
[2018-09-19] MEDS: Famotidine 20 MG TAB PO SCH ×2 (08:04→20:45)
[2018-09-19 08:44] LABS: #Eosinphils 0.1 thou/uL (0.0-0.7); #Lymphocytes 1.6 thou/uL (1.20-3.40); #Monocytes 0.8 thou/uL (0.11-0.59); #Neutrophils 7.7 thou/uL (1.40-6.50); %Basophils 0.2 % (0.0-1.0); %Eosinophils 0.9 % (0.0-10.0); %Lymphocytes 15.7 % (21.0-51.0); %Neutrophils 75.3 % (42.0-75.0); Hemoglobin 13.5 g/dL (12.0-16.0); Mean Corpuscular HGB CONC 33.6 g/dL (32.0-36.0); Mean Corpuscular Hemoglobin 30.9 pg (27.0-31.0); Mean Corpuscular Volume 91.8 fL (78.0-98.0); Mean Platelet Volume 5.6 fL (7.4-10.4); Platelet Count 310 thou/uL (130-400); RBC Distribution Width 12.2 % (11.5-14.5); Red Blood Cell (RBC) Count 4.38 mill/uL (4.20-5.40); White Blood Cell (WBC) Count 10.2 thou/uL (4.8-10.8)
[2018-09-19 09:02] LABS: Anion Gap 14 mmol/L (10-20); BUN (Urea Nitrogen) 7 mg/dL (9.8-20.1); Calc. Creatinine Clearance 54 mL/min (70-130); Calcium 8.9 mg/dL (7.8-10.44); Carbon Dioxide 23 mmol/L (23-31); Chloride 96 mmol/L (98-107); Estimated GFR-MDRD 81; Glucose 109 mg/dL (83-110); Potassium 3.1 mmol/L (3.5-5.1); Sodium 130 mmol/L (136-145)
[2018-09-19] MEDS: Apixaban 2.5 MG TAB PO SCH ×2 (09:05→20:44)
[2018-09-19] MEDS: Pot Chloride/Pot Bicarb/Cit Ac 25 mEq Effervescent Tablet PO SCH (09:05)
[2018-09-19] MEDS ORDERED: Potassium Chloride 20 MEQ TAB PO SCH (13:15)
--- NOTE | 2018-09-19 15:44 | PDOC.PN ---
- Subjective Encounter Start Date: 09/19/18 Encounter Start Time: 15:42 Patient lying in bed, she reports feeling better today. She reports 3 bowel movements last night. PT recommending rehab and patient willing to try swing bed in [place]. She denies chest pain, palpitations, shortness of breath. - Objective Resuscitation Status - Order Detail: 09/17/18 10:33 Resuscitation Status Routine Co-Sign Provider: Resuscitation Status: FULL: Full Resuscitation Discussed with: patient Additional comments: Surrogate decision maker is Sheng Zurita, son ZONIA Reviewed: Yes Vital Signs & Weight: Vital Signs (12 hours) Temp Pulse Resp BP BP Pulse Ox 09/19/18 15:05 97.6 F 61 14 117/65 94 L 09/19/18 11:19 97.7 F 60 14 141/74 H 94 L 09/19/18 08:04 66 09/19/18 08:03 150/74 H 09/19/18 07:43 98.3 F 66 24 H 139/81 95 09/19/18 04:00 97.8 F 63 20 135/71 95 Weight Admit Weight 119 lb Weight 122 lb I&O: 09/18/18 09/19/18 09/20/18 06:59 06:59 06:59 Intake Total 2580 800 Output Total 600 Balance 1980 800 Result Diagrams: 09/19/18 08:34 09/19/18 08:34 Radiology Reviewed by me: Yes Phys Exam - Physical Examination Constitutional: NAD HEENT: moist MMs, oral pharynx no lesions Neck: supple Respiratory: no wheezing, clear to auscultation bilateral Cardiovascular: RRR, no significant murmur Gastrointestinal: soft, non-tender, positive bowel sounds Musculoskeletal: no edema, pulses present Neurological: non-focal, moves all 4 limbs Lymphatic: no nodes Psychiatric: A&O x 3 Skin: cap refill <2 seconds Dx/Plan (1) Constipation Code(s): K59.00 - CONSTIPATION, UNSPECIFIED Status: Acute (2) Hypothyroid Code(s): E03.9 - HYPOTHYROIDISM, UNSPECIFIED Status: Acute (3) Generalized weakness Code(s): R53.1 - WEAKNESS Status: Acute (4) Atrial fibrillation Code(s): I48.91 - UNSPECIFIED ATRIAL FIBRILLATION Status: Chronic (5) Chronic kidney disease (CKD) Code(s): N18.9 - CHRONIC KIDNEY DISEASE, UNSPECIFIED Status: Chronic (6) Lumbar back pain Code(s): M54.5 - LOW BACK PAIN Status: Chronic - Plan cont current plan of care, PT/OT * Continue bowel regimen * PT/OT recommend rehab, but she is willing to try swing bed in [place] * Continue medical management * Sodium dropped to 130 today with low potassium, supplement of potassium given * Recheck BMP in am * Nephrology following and we appreciate recommendations * Transition to inpatient
[2018-09-19] MEDS: traMADol HCl 50 MG TAB PO PRN (20:46)
--- NOTE | 2018-09-19 21:55 | PRG ---
DATE OF SERVICE: 09/19/2018 SUBJECTIVE: The patient is seen and examined. No new complaint. Noted with the following vital signs. OBJECTIVE: VITAL SIGNS: Afebrile, temperature 97.6, pulse 61, respiratory rate of 14, blood pressure 141/74, O2 saturations are 94%. HEENT: Unremarkable. CARDIOVASCULAR SYSTEM: First and second heart sounds were heard. RESPIRATORY SYSTEM: Clear to auscultation. DIGESTIVE SYSTEM: Revealed a benign abdomen with positive bowel sounds. EXTREMITIES: No peripheral edema. SKIN: No new gross rash. LYMPHATICS: No peripheral lymphadenopathy. IMPRESSION: Hyponatremia in the context of syndrome of inappropriate antidiuretic hormone secretion with a slight drop in sodium. PLAN: 1. The patient to continue with increased protein intake in the way of animal meat and restrict free water intake. 2. Further management to be dependent on the clinical course. Job ID: [id number]
[2018-09-20] MEDS: Ketorolac Tromethamine 10 MG TAB PO SCH ×3 (00:35→08:22)
[2018-09-20] MEDS ORDERED: Lidocaine 5% Patch TD SCH ×2 (01:00→09:00)
[2018-09-20] MEDS: Levothyroxine 150 MCG TAB PO SCH (05:22)
[2018-09-20] MEDS: Hyoscyamine Sulfate SL 0.125 mg Tablet SL SCH (05:22)
[2018-09-20] MEDS: Apixaban 2.5 MG TAB PO SCH (08:21)
[2018-09-20] MEDS: Senokot S 8.6-50 MG TAB PO SCH (08:21)
[2018-09-20] MEDS: Polyethylene Glycol 3350 17 GM Packet PO SCH (08:21)
[2018-09-20] MEDS: Famotidine 20 MG TAB PO SCH (08:22)
[2018-09-20] MEDS: Lisinopril 20 MG TAB PO SCH (08:23)
[2018-09-20] MEDS: Amiodarone 200 MG TAB PO SCH (08:23)
[2018-09-20] MEDS: Amlodipine 5 MG TAB PO SCH (08:23)
[2018-09-20] MEDS: Pot Chloride/Pot Bicarb/Cit Ac 25 mEq Effervescent Tablet PO SCH (08:24)
[2018-09-20] MEDS: traMADol HCl 50 MG TAB PO PRN (10:49)
[2018-09-20 11:13] VITALS: BP 151/71; TEMP 98.4
--- NOTE | 2018-09-20 11:42 | PDOC.PN ---
- Subjective Encounter Start Date: 09/20/18 Encounter Start Time: 09:00 Subjective: no nausea or abd pain now -: feels better, no bm after 3 she had on - Objective Resuscitation Status - Order Detail: 09/17/18 10:33 Resuscitation Status Routine Co-Sign Provider: Resuscitation Status: FULL: Full Resuscitation Discussed with: patient Additional comments: Surrogate decision maker is Sheng Zurita, son ZONIA Reviewed: Yes Vital Signs & Weight: Vital Signs (12 hours) Temp Pulse Resp BP BP BP Pulse Ox 09/20/18 10:55 98.4 F 61 20 151/71 H 94 L 09/20/18 08:23 58 L 144/64 H 09/20/18 07:40 98.0 F 58 L 20 154/73 H 94 L 09/20/18 04:20 98.0 F 60 18 144/66 H 95 09/20/18 00:51 98.1 F 60 18 145/73 H 96 Weight Admit Weight 119 lb Weight 122 lb 4.8 oz I&O: 09/19/18 09/20/18 09/21/18 06:59 06:59 06:59 Intake Total 800 1740 Balance 800 1740 Result Diagrams: 09/19/18 08:34 09/19/18 08:34 Phys Exam - Physical Examination HEENT: PERRLA, moist MMs Neck: no JVD, supple Respiratory: no wheezing, no rales Cardiovascular: RRR, no significant murmur Gastrointestinal: soft, no distention, positive bowel sounds Musculoskeletal: no edema, pulses present Neurological: non-focal, moves all 4 limbs Psychiatric: A&O x 3 Dx/Plan (1) Constipation Code(s): K59.00 - CONSTIPATION, UNSPECIFIED Status: Resolved (2) Generalized weakness Code(s): R53.1 - WEAKNESS Status: Acute (3) Hypothyroid Code(s): E03.9 - HYPOTHYROIDISM, UNSPECIFIED Status: Chronic Qualifiers: Hypothyroidism type: unspecified Qualified Code(s): E03.9 - Hypothyroidism , unspecified (4) Atrial fibrillation Code(s): I48.91 - UNSPECIFIED ATRIAL FIBRILLATION Status: Chronic Qualifiers: Atrial fibrillation type: paroxysmal Qualified Code(s): I48.0 - Paroxysmal atrial fibrillation (5) Compression fracture Code(s): [id number] - Status: Chronic Comment: L1 and L3 with back pain - Plan hemostable -: is on vit D3, will need meds for osteoporosis via pcp -: dc pt to swing bed in [place] -: continue bowel regimen, lidocaine tts * .
[2018-09-20] MEDS ORDERED: Lidocaine Patch Removal 1 EACH TOP SCH ×2 (13:00→21:00)
--- NOTE | 2018-09-20 15:12 | DIS ---
DATE OF ADMISSION: 09/19/2018 DATE OF DISCHARGE: 09/20/2018 DISCHARGE DISPOSITION: [facility] swing bed. PRIMARY DISCHARGE DIAGNOSES: 1. Generalized weakness. 2. Constipation, resolved. 3. Paroxysmal atrial fibrillation. 4. Hypothyroidism. 5. Prior history of compression fracture of L1 and L3 with severe back pain, stable on lidocaine patches. PROCEDURES DONE DURING HOSPITALIZATION: CT of the abdomen and pelvis without contrast done on the day of admission showed moderate amount of retained fecal material seen throughout the colon which is increased when compared to prior exam on 09/10/2018. There are stable compression fractures involving L1 and L3 vertebral bodies of indeterminate age. Chest x-ray done showed chronic lung findings, otherwise no acute intrathoracic abnormality. Had a white count of 15 on the day of admission with discharge number of 10, H and H 13 and 40, platelet count 310. Discharge sodium of 130. Urine osmolality 378. DISCHARGE MEDICATIONS: 1. Amiodarone 200 mg p.o. daily. 2. Norvasc 2.5 mg p.o. twice daily. 3. Eliquis 2.5 mg twice daily. 4. Vitamin D3 of 1000 units p.o. daily. 5. Levsin sublingual q.6 hourly p.r.n. 6. Synthroid 75 mcg p.o. daily. 7. Lisinopril 20 mg twice daily. 8. Metoprolol extended release 50 mg p.o. daily. 9. Lidocaine transdermal patch daily. 10. MiraLax 17 g daily. 11. Senna 2 tablets p.o. twice daily. ALLERGIES: 1. CODEINE. 2. FENTANYL. 3. IODINE. 4. PENICILLIN. DISCHARGE PLAN: The patient to follow up with primary care physician in 1 week. BRIEF COURSE DURING HOSPITALIZATION: The patient initially came to emergency room for complaints of low back pain. This has been ongoing for almost a month. She has had a CT abdomen and pelvis done which showed constipation along with indeterminate age L1 and L3 compression fracture. She was recently hospitalized here for colitis. The patient was given GoLYTELY during her stay here and has had nearly 3 bowel movements. The patient states that she is cleaned out now. For her back pain, she was started on lidocaine patch which has helped her. In view of deconditioning , the patient is being discharged to [facility] bed for further recuperation prior to going home. She was placed on senna and MiraLAX for bowel regimen. She is otherwise hemodynamically stable and will be shortly discharged. Please see a [id number] documentation for the day of discharge on [place]. A total of 35 minutes was spent on discharge plan. Job ID: [id number] MTDD
== END 2018-09-20 11:05 | DRG 552 ==
LOC: ERS 18:12 → SURG B 22:05 → OBSVTOIN 09-19 15:48
PROVIDERS: ADMIT Hospitalist; ATTEND Hospitalist
DX: M54.5 Low back pain (principal); E22.2 Syndrome of inappropriate secretion of antidiuretic hormone; M48.56XA Collapsed vertebra, not elsewhere classified, lumbar region, initial encounter for fracture; G89.29 Other chronic pain; R53.1 Weakness; K59.00 Constipation, unspecified; E03.9 Hypothyroidism, unspecified; E78.5 Hyperlipidemia, unspecified; I12.9 Hypertensive chronic kidney disease with stage 1 through stage 4 chronic kidney disease, or unspecified chronic kidney disease; N18.3 Chronic kidney disease, stage 3 (moderate); F41.9 Anxiety disorder, unspecified; F32.9 Major depressive disorder, single episode, unspecified; M81.0 Age-related osteoporosis without current pathological fracture; I48.0 Paroxysmal atrial fibrillation; Z90.49 Acquired absence of other specified parts of digestive tract; Z90.710 Acquired absence of both cervix and uterus; Z90.721 Acquired absence of ovaries, unilateral; Z88.2 Allergy status to sulfonamides; Z88.5 Allergy status to narcotic agent; Z88.0 Allergy status to penicillin
CPT/HCPCS: 36415; 51701; 71045; 74176; 80048; 81003; 81015; 83935; 84300; 85025; 96361; 96374; A4353; J2800; J3490; J7050

== ENCOUNTER 2021-12-08 20:13 | Inpatient (IN) | payer MEDICARE, OTHER ==
[2021-12-08 21:27] LABS: #Eosinphils 0.2 thou/uL (0.0-0.7); #Lymphocytes 2.8 thou/uL (1.20-3.40); #Monocytes 0.7 thou/uL (0.11-0.59); #Neutrophils 3.6 thou/uL (1.40-6.50); %Basophils 0.6 % (0.0-1.0); %Eosinophils 3.2 % (0.0-10.0); %Lymphocytes 37.8 % (21.0-51.0); %Monocytes 9.9 % (0.0-10.0); %Neutrophils 48.4 % (42.0-75.0); Hemoglobin 13.1 g/dL (12.0-16.0); Mean Corpuscular HGB CONC 33.5 g/dL (32.0-36.0); Mean Corpuscular Hemoglobin 29.2 pg (27.0-31.0); Mean Corpuscular Volume 87.3 fL (78.0-98.0); Mean Platelet Volume 6.8 fL (7.4-10.4); Platelet Count 197 thou/uL (130-400); RBC Distribution Width 12.3 % (11.5-14.5); Red Blood Cell (RBC) Count 4.48 mill/uL (4.20-5.40); White Blood Cell (WBC) Count 7.5 thou/uL (4.8-10.8)
[2021-12-08 21:47] LABS: ALT (SGPT) 9 U/L (8-55); AST (SGOT) 18 U/L (5-34); Albumin 3.7 g/dL (3.4-4.8); Alkaline Phosphatase 69 U/L (40-110); Anion Gap 14 mmol/L (10-20); BUN (Urea Nitrogen) 14 mg/dL (9.8-20.1); Bilirubin, Total 1.1 mg/dL (0.2-1.2); Calc. Creatinine Clearance 0 mL/min (70-130); Calcium 9.3 mg/dL (7.8-10.44); Carbon Dioxide 21 mmol/L (23-31); Chloride 103 mmol/L (98-107); Estimated GFR 76; Glucose 92 mg/dL (83-110); Potassium 3.9 mmol/L (3.5-5.1); Protein, Total 6.7 g/dL (5.8-8.1); Sodium 134 mmol/L (136-145)
[2021-12-08] MEDS ORDERED: Acetaminophen 325 MG TAB PO PRN (23:44)
[2021-12-08] MEDS ORDERED: HYDROcodone/Acetaminophen 7.5/325 mg Tablet PO PRN (23:44)
[2021-12-08] MEDS ORDERED: Zolpidem Tartrate 5 MG TAB PO PRN (23:44)
[2021-12-09 01:29] LABS: SARS-CoV-2 NAA Rapid Test Not Detected (NotDetected)
[2021-12-09 02:06] LABS: Troponin I Less than 0.010 ng/mL (< 0.028)
[2021-12-09 04:56] LABS: #Eosinphils 0.3 thou/uL (0.0-0.7); #Lymphocytes 2.5 thou/uL (1.20-3.40); #Monocytes 0.7 thou/uL (0.11-0.59); #Neutrophils 3.4 thou/uL (1.40-6.50); %Basophils 0.4 % (0.0-1.0); %Eosinophils 3.8 % (0.0-10.0); %Lymphocytes 35.7 % (21.0-51.0); %Monocytes 10.7 % (0.0-10.0); %Neutrophils 49.3 % (42.0-75.0); Hemoglobin 11.7 g/dL (12.0-16.0); Mean Corpuscular HGB CONC 32.9 g/dL (32.0-36.0); Mean Corpuscular Hemoglobin 28.8 pg (27.0-31.0); Mean Corpuscular Volume 87.6 fL (78.0-98.0); Mean Platelet Volume 6.9 fL (7.4-10.4); Platelet Count 201 thou/uL (130-400); RBC Distribution Width 12.2 % (11.5-14.5); Red Blood Cell (RBC) Count 4.08 mill/uL (4.20-5.40); White Blood Cell (WBC) Count 6.9 thou/uL (4.8-10.8)
[2021-12-09 05:21] LABS: Troponin I Less than 0.010 ng/mL (< 0.028)
[2021-12-09 05:23] LABS: ALT (SGPT) 10 U/L (8-55); AST (SGOT) 16 U/L (5-34); Albumin 3.5 g/dL (3.4-4.8); Alkaline Phosphatase 62 U/L (40-110); Anion Gap 11 mmol/L (10-20); BUN (Urea Nitrogen) 14 mg/dL (9.8-20.1); Calc. Creatinine Clearance 46 mL/min (70-130); Calcium 8.7 mg/dL (7.8-10.44); Carbon Dioxide 24 mmol/L (23-31); Chloride 105 mmol/L (98-107); Estimated GFR 84; Globulin 2.7 g/dL (2.4-3.5); Glucose 96 mg/dL (83-110); Potassium 3.7 mmol/L (3.5-5.1); Protein, Total 6.2 g/dL (5.8-8.1); Sodium 136 mmol/L (136-145)
[2021-12-09] MEDS ORDERED: Famotidine 20 MG TAB ONE (08:48)
[2021-12-09] MEDS ORDERED: Aspirin Chewable 81 MG TAB ONE (08:48)
[2021-12-09] MEDS ORDERED: Amlodipine 5 MG TAB ONE (08:57)
[2021-12-09] MEDS: Losartan 25 MG TAB PO SCH (08:59)
[2021-12-09] MEDS: Famotidine 20 MG TAB PO SCH ×2 (08:59→20:18)
[2021-12-09] MEDS: Apixaban 2.5 MG TAB PO SCH ×2 (09:00→20:18)
[2021-12-09] MEDS: Aspirin Chewable 81 MG TAB PO SCH (09:00)
[2021-12-09] MEDS: Amlodipine 5 MG TAB PO SCH (09:00)
[2021-12-09 14:44] VITALS: BMI 18.1
[2021-12-09] MEDS: Sodium Chloride 0.9% 1,000 ML IV SCH ×2 (20:17)
[2021-12-10 02:41] LABS: Bacteria/HPF 2+ HPF (None Seen); Bilirubin Negative (Negative); Blood, Urine Trace (Negative); Clarity Clear (Clear); Glucose, Urine (Dipstick) Normal (Negative); Ketone, Urine Negative (Negative); Leukocyte 25 Leu/uL (Negative); Nitrite Negative (Negative); Protein, Urine (Dipstick) Negative (Neg-Trace); RBC/HPF 0-3 HPF (0-3); Specific Gravity, Urine 1.005 (1.002-1.036); Squamous Epithelial None Seen HPF (0-3); Urobilinogen Normal mg/dL (Less than 2); WBC/HPF 0-3 HPF (0-3); pH, Urine 6.5 (5.0-9.0)
[2021-12-10 05:18] LABS: #Eosinphils 0.3 thou/uL (0.0-0.7); #Lymphocytes 2.2 thou/uL (1.20-3.40); #Monocytes 0.8 thou/uL (0.11-0.59); #Neutrophils 3.7 thou/uL (1.40-6.50); %Basophils 0.4 % (0.0-1.0); %Eosinophils 4.5 % (0.0-10.0); %Lymphocytes 31.7 % (21.0-51.0); %Monocytes 10.7 % (0.0-10.0); %Neutrophils 52.6 % (42.0-75.0); Hemoglobin 11.8 g/dL (12.0-16.0); Mean Corpuscular HGB CONC 33.2 g/dL (32.0-36.0); Mean Corpuscular Hemoglobin 29.2 pg (27.0-31.0); Mean Platelet Volume 6.8 fL (7.4-10.4); Platelet Count 199 thou/uL (130-400); RBC Distribution Width 12.2 % (11.5-14.5); Red Blood Cell (RBC) Count 4.02 mill/uL (4.20-5.40); White Blood Cell (WBC) Count 7.1 thou/uL (4.8-10.8)
[2021-12-10 05:38] LABS: ALT (SGPT) 9 U/L (8-55); AST (SGOT) 17 U/L (5-34); Albumin 3.6 g/dL (3.4-4.8); Alkaline Phosphatase 64 U/L (40-110); Anion Gap 10 mmol/L (10-20); BUN (Urea Nitrogen) 13 mg/dL (9.8-20.1); Bilirubin, Total 1.1 mg/dL (0.2-1.2); Calc. Creatinine Clearance 43 mL/min (70-130); Calcium 8.6 mg/dL (7.8-10.44); Carbon Dioxide 21 mmol/L (23-31); Chloride 107 mmol/L (98-107); Estimated GFR 77; Globulin 2.6 g/dL (2.4-3.5); Glucose 92 mg/dL (83-110); Potassium 3.7 mmol/L (3.5-5.1); Protein, Total 6.2 g/dL (5.8-8.1); Sodium 134 mmol/L (136-145)
[2021-12-10] MEDS: Aspirin Chewable 81 MG TAB PO SCH (11:20)
[2021-12-10] MEDS: Famotidine 20 MG TAB PO SCH ×2 (11:20→20:06)
[2021-12-10] MEDS: Amiodarone 200 MG TAB PO SCH (11:21)
[2021-12-10] MEDS: Apixaban 2.5 MG TAB PO SCH ×2 (11:21→20:06)
[2021-12-10] MEDS: cefTRIAXone\\ROCEPHIN 1 GM in Sodium Chloride 0.9% 100 ML IVPB SCH (11:22)
[2021-12-10] MEDS: Losartan 25 MG TAB PO SCH (11:22)
[2021-12-10] MEDS: Amlodipine 5 MG TAB PO SCH (11:30)
[2021-12-10] MEDS ORDERED: Metoprolol Tartrate 50 MG TAB PO SCH ×2 (13:15→21:00)
[2021-12-10] MEDS: Sodium Chloride 0.9% 1,000 ML IV SCH (18:20)
[2021-12-11] MEDS ORDERED: Metoprolol Tartrate 100 MG TAB PO SCH (09:00)
[2021-12-11] MEDS: Amiodarone 200 MG TAB PO SCH (10:10)
[2021-12-11] MEDS: Apixaban 2.5 MG TAB PO SCH ×2 (10:11→20:28)
[2021-12-11] MEDS: Famotidine 20 MG TAB PO SCH ×2 (10:11→20:28)
[2021-12-11] MEDS: Aspirin Chewable 81 MG TAB PO SCH (10:11)
[2021-12-11] MEDS: cefTRIAXone\\ROCEPHIN 1 GM in Sodium Chloride 0.9% 100 ML IVPB SCH (10:11)
[2021-12-12] MEDS: Famotidine 20 MG TAB PO SCH (10:06)
[2021-12-12] MEDS: Amiodarone 200 MG TAB PO SCH (10:06)
[2021-12-12] MEDS: Apixaban 2.5 MG TAB PO SCH (10:06)
[2021-12-12] MEDS: Aspirin Chewable 81 MG TAB PO SCH (10:06)
[2021-12-12] MEDS: cefTRIAXone\\ROCEPHIN 1 GM in Sodium Chloride 0.9% 100 ML IVPB SCH (10:08)
[2021-12-12 11:40] VITALS: TEMP 97.7
[2021-12-12 16:36] VITALS: BP 144/67
== END 2021-12-12 18:00 | disposition home or self-care (01) | DRG 312 ==
LOC: ERS 20:13 → ERHOLD 23:24 → 2SW 12-09 14:09 → OBSVTOIN 12-10 14:13
PROVIDERS: ADMIT Internal Medicine; ATTEND Internal Medicine
DX: R55 Syncope and collapse (principal); I48.0 Paroxysmal atrial fibrillation; Z20.822 Contact with and (suspected) exposure to COVID-19; E78.5 Hyperlipidemia, unspecified; I25.10 Atherosclerotic heart disease of native coronary artery without angina pectoris; N18.30 Chronic kidney disease, stage 3 unspecified; E03.9 Hypothyroidism, unspecified; I34.0 Nonrheumatic mitral (valve) insufficiency; I12.9 Hypertensive chronic kidney disease with stage 1 through stage 4 chronic kidney disease, or unspecified chronic kidney disease; Z88.0 Allergy status to penicillin; Z88.2 Allergy status to sulfonamides; Z88.5 Allergy status to narcotic agent; Z88.8 Allergy status to other drugs, medicaments and biological substances; Z91.041 Radiographic dye allergy status; Z91.013 Allergy to seafood; Z79.890 Hormone replacement therapy; Z79.01 Long term (current) use of anticoagulants; Z79.899 Other long term (current) drug therapy; Z95.1 Presence of aortocoronary bypass graft; Z90.710 Acquired absence of both cervix and uterus; Z90.49 Acquired absence of other specified parts of digestive tract; Z87.891 Personal history of nicotine dependence
CPT/HCPCS: 36415; 71045; 80053; 81001; 83880; 84436; 84443; 84484; 85025; 87086; 93005; 93306; 93880; 94760; 96374; G0378; J0696; J3490; J7050; U0002